=== PATIENT | male | born 1955 | race Caucasian/White ===

== ENCOUNTER 2018-02-22 06:54 | Inpatient (IN) | payer OTHER, BC ==
[2018-02-22 07:28] LABS: ADD MAN DIFF? NO
[2018-02-22 07:30] LABS: BASOPHILS % 0.4 % (0.0-2.0); HEMATOCRIT 43.8 % (42.0-52.0); HEMOGLOBIN 14.9 g/dl (14.0-18.0); LYMPHOCYTES # 1.6 10^3/ul (0.8-2.9); LYMPHOCYTES % 27.9 % (15.0-51.0); MEAN CORPUSCULAR HEMOGLOBIN 30.1 pg (29.0-33.0); MEAN CORPUSCULAR VOLUME 88.5 fl (82.0-101.0); MEAN PLATELET VOLUME 10.2 fl (7.4-10.4); MONOCYTE # 0.5 10^3/ul (0.3-0.9); MONOCYTES % 8.1 % (0.0-11.0); NEUTROPHIL # 3.6 10^3/ul (1.6-7.5); NEUTROPHILS % 63.2 % (39.0-77.0); PLATELET COUNT 217 10^3/UL (140-415); RED BLOOD COUNT 4.95 10^6/ul (4.70-6.10); RED CELL DISTRIBUTION WIDTH 13.1 % (11.5-14.5)
[2018-02-22 07:30] LABS: WHITE BLOOD COUNT 5.7 10^3/ul (4.8-10.8)
[2018-02-22] MEDS: SOD CHLORIDE 0.9% 1,000 ML IV ×2 (07:34→15:30)
[2018-02-22] MEDS: ASPIRIN 325 MG TAB PO (07:34)
[2018-02-22] MEDS: ONDANSETRON 4 MG INJ IV (07:34)
[2018-02-22] MEDS: morphine 4 MG/ML VIAL IV (07:35)
[2018-02-22 07:50] LABS: INR 0.91; PROTIME 12.3 Sec (11.9-14.9)
[2018-02-22 07:51] LABS: PARTIAL THROMBOPLASTIN TIME 31.9 Sec (25.0-35.0)
[2018-02-22 07:54] LABS: ALANINE AMINOTRANSFERASE 60 IU/L (13-69); ALBUMIN 3.8 g/dl (3.3-4.9); ALBUMIN/GLOBULIN RATIO 1.18; ALKALINE PHOSPHATASE 112 IU/L (42-121); AMYLASE 103 U/L (11-123); ANION GAP 9 (8-16); ASPARTATE AMINO TRANSFERASE 41 IU/L (15-46); BILIRUBIN,INDIRECT 0.7 mg/dl (0-1.1); BILIRUBIN,TOTAL 0.7 mg/dl (0.2-1.3); BLOOD UREA NITROGEN 16 mg/dl (7-20); CALCIUM 8.8 mg/dl (8.4-10.2); CARBON DIOXIDE 31 mmol/L (21-31); CHLORIDE 106 mmol/L (97-110); CREATINE KINASE 99 IU/L (23-200); CREATININE 0.82 mg/dl (0.61-1.24); GLUCOSE 114 mg/dl (70-220); LIPASE 33 U/L (23-300); POTASSIUM 3.7 mmol/L (3.5-5.1); SODIUM 142 mmol/L (135-144)
[2018-02-22 08:04] LABS: CK INDEX 2.2
[2018-02-22 08:09] LABS: CK-MB 2.22 ng/ml (0.0-2.4)
[2018-02-22] MEDS: NITROGLYCERIN (SL) 0.4 MG TAB SL (08:28)
[2018-02-22] MEDS: HEPARIN 1000 UNITS/ML 10 ML INJ IV ×2 (08:53→18:27)
[2018-02-22] MEDS ORDERED: ACETAMINOPHEN 325 MG TAB PO ×3 (09:00→13:30)
[2018-02-22] MEDS ORDERED: HEPARIN 1000 UNITS/ML 10 ML INJ IV (09:00)
[2018-02-22] MEDS ORDERED: ONDANSETRON 4 MG INJ IV ×3 (09:00→13:30)
[2018-02-22] MEDS ORDERED: HEPARIN 25000 UNITS/250 ML 250 ML IV (09:00)
[2018-02-22] MEDS: IOHEXOL 300MG/ML 150 ML BTL (09:27)
[2018-02-22] MEDS: SOD CHLORIDE 0.9% 100 ML (09:27)
[2018-02-22] MEDS ORDERED: BISACODYL 10 MG SUPP PR (09:30)
[2018-02-22] MEDS ORDERED: morphine 2 MG INJ IV (09:30)
[2018-02-22] MEDS ORDERED: ACETAMINOPHEN 650 MG SUPP PR (09:30)
[2018-02-22] MEDS ORDERED: HYDROCODONE/APAP (5/325) TAB PO ×2 (09:30)
[2018-02-22] MEDS ORDERED: NITROGLYCERIN (SL) 0.4 MG TAB SL (09:30)
[2018-02-22] MEDS ORDERED: DOCUSATE SODIUM 100 MG CAP PO (09:30)
[2018-02-22] MEDS ORDERED: NACL 0.9% 3 ML SYG IV (09:30)
[2018-02-22] MEDS ORDERED: MAGNESIUM HYDROXIDE 30ML CUP PO (09:30)
[2018-02-22 10:58] LABS: ADD MAN DIFF? NO
[2018-02-22 11:00] LABS: WHITE BLOOD COUNT 6.4 10^3/ul (4.8-10.8)
[2018-02-22 11:00] LABS: BASOPHILS % 0.5 % (0.0-2.0); HEMATOCRIT 42.4 % (42.0-52.0); HEMOGLOBIN 14.5 g/dl (14.0-18.0); LYMPHOCYTES # 1.2 10^3/ul (0.8-2.9); LYMPHOCYTES % 19.5 % (15.0-51.0); MEAN CORPUSCULAR HGB CONC 34.2 g/dl (32.0-37.0); MEAN CORPUSCULAR VOLUME 87.8 fl (82.0-101.0); MEAN PLATELET VOLUME 9.7 fl (7.4-10.4); MONOCYTE # 0.4 10^3/ul (0.3-0.9); MONOCYTES % 6.6 % (0.0-11.0); NEUTROPHIL # 4.7 10^3/ul (1.6-7.5); NEUTROPHILS % 72.9 % (39.0-77.0); PLATELET COUNT 206 10^3/UL (140-415); RED BLOOD COUNT 4.83 10^6/ul (4.70-6.10); RED CELL DISTRIBUTION WIDTH 12.8 % (11.5-14.5)
[2018-02-22 11:27] LABS: CREATINE KINASE 127 IU/L (23-200); INR 1.05; PROTIME 13.8 Sec (11.9-14.9); PT RATIO 1.1
[2018-02-22 11:39] LABS: CK INDEX 5.9
[2018-02-22] MEDS ORDERED: HEPARIN 1000 UNITS/ML 10 ML INJ (11:40)
[2018-02-22] MEDS ORDERED: FENTAnyl 50 MCG/ML VIAL (11:40)
[2018-02-22] MEDS ORDERED: IODIXANOL LOCM 100 ML BTL (11:40)
[2018-02-22] MEDS ORDERED: LIDOCAINE 1% (MDV) 20 ML INJ (11:40)
[2018-02-22] MEDS ORDERED: NITROGLYCERIN (IC) 100 MCG/ML INJ (11:41)
[2018-02-22] MEDS ORDERED: VERAPAMIL 5 MG INJ (11:41)
[2018-02-22] MEDS ORDERED: MIDAZOLAM 1 MG/ML 2 ML INJ (11:41)
[2018-02-22 11:45] LABS: CK-MB 7.49 ng/ml (0.0-2.4)
[2018-02-22 12:17] LABS: PARTIAL THROMBOPLASTIN TIME 53.4 Sec (25.0-35.0)
[2018-02-22] MEDS ORDERED: niCARdipine 25 MG INJ (12:30)
[2018-02-22] MEDS ORDERED: BIVALIRUDIN 250MG /NS 50 ML 50 ML IVPB (12:34)
[2018-02-22] MEDS ORDERED: TICAGRELOR 90 MG TABLET (12:44)
[2018-02-22] MEDS ORDERED: ASPIRIN 325 MG TAB (12:45)
[2018-02-22] MEDS ORDERED: ZOLPIDEM 5 MG TAB PO (13:30)
[2018-02-22] MEDS ORDERED: AL HYDROX/MG HYDROX/SIMETH 30 ML CUP PO (13:30)
[2018-02-22] MEDS ORDERED: OXYCODONE/ACETAMINOPHEN (5/325) TAB PO (13:30)
[2018-02-22 19:56] LABS: CREATINE KINASE 515 IU/L (23-200)
[2018-02-22 20:09] LABS: CK INDEX 9.5
[2018-02-22] MEDS: TICAGRELOR 90 MG TABLET PO (21:20)
[2018-02-22] MEDS ORDERED: morphine LIQ (10 MG/5 ML) CUP PO (22:30)
[2018-02-23 05:52] LABS: ADD MAN DIFF? NO
[2018-02-23 05:58] LABS: WHITE BLOOD COUNT 7.8 10^3/ul (4.8-10.8)
[2018-02-23 05:58] LABS: BASOPHILS % 0.3 % (0.0-2.0); HEMATOCRIT 39.6 % (42.0-52.0); HEMOGLOBIN 13.4 g/dl (14.0-18.0); LYMPHOCYTES # 1.3 10^3/ul (0.8-2.9); LYMPHOCYTES % 17.2 % (15.0-51.0); MEAN CORPUSCULAR HEMOGLOBIN 29.7 pg (29.0-33.0); MEAN CORPUSCULAR HGB CONC 33.8 g/dl (32.0-37.0); MEAN CORPUSCULAR VOLUME 87.8 fl (82.0-101.0); MEAN PLATELET VOLUME 10.5 fl (7.4-10.4); MONOCYTE # 0.7 10^3/ul (0.3-0.9); MONOCYTES % 8.8 % (0.0-11.0); NEUTROPHIL # 5.7 10^3/ul (1.6-7.5); NEUTROPHILS % 73.3 % (39.0-77.0); PLATELET COUNT 195 10^3/UL (140-415); RED BLOOD COUNT 4.51 10^6/ul (4.70-6.10); RED CELL DISTRIBUTION WIDTH 12.9 % (11.5-14.5)
[2018-02-23] MEDS: PANTOPRAZOLE 40 MG INJ IV (06:13)
[2018-02-23 06:25] LABS: CREATINE KINASE 297 IU/L (23-200)
[2018-02-23 06:34] LABS: CK INDEX 7.3
[2018-02-23 06:42] LABS: FREE THYROXINE INDEX (Calc) 2.35 ug/ml (0.65-3.89); T4 (THYROXINE) 6.9 ug/dl (5.5-11.0)
[2018-02-23 06:43] LABS: ALANINE AMINOTRANSFERASE 63 IU/L (13-69); ALBUMIN 3.1 g/dl (3.3-4.9); ALBUMIN/GLOBULIN RATIO 1.06; ALKALINE PHOSPHATASE 93 IU/L (42-121); ANION GAP 9 (8-16); ASPARTATE AMINO TRANSFERASE 73 IU/L (15-46); BILIRUBIN,INDIRECT 0.9 mg/dl (0-1.1); BILIRUBIN,TOTAL 0.9 mg/dl (0.2-1.3); BLOOD UREA NITROGEN 10 mg/dl (7-20); CALCIUM 8.5 mg/dl (8.4-10.2); CARBON DIOXIDE 25 mmol/L (21-31); CHLORIDE 108 mmol/L (97-110); CHOL/HDL RATIO 3.8 RATIO; CHOLESTEROL 192 mg/dl (100-200); CREATININE 0.61 mg/dl (0.61-1.24); GLUCOSE 90 mg/dl (70-220); HDL CHOLESTEROL 50 mg/dl (30-78); LDL CHOLESTEROL,CALCULATED 114 mg/dl; MAGNESIUM 1.8 mg/dl (1.7-2.5); POTASSIUM 3.9 mmol/L (3.5-5.1); SODIUM 138 mmol/L (135-144); TRIGLYCERIDES 139 mg/dl (0-149)
[2018-02-23 07:32] LABS: HEMOGLOBIN A1C 5.3 % (0-5.9)
[2018-02-23] MEDS: ASPIRIN (EC) 81 MG TAB PO (08:25)
[2018-02-23] MEDS: TICAGRELOR 90 MG TABLET PO ×2 (08:29→20:45)
[2018-02-23] MEDS ORDERED: DIAZEPAM 5 MG TAB PO (11:30)
[2018-02-23] MEDS: DIAZEPAM 5 MG TAB PO (11:30)
[2018-02-23] MEDS: DIPHENHYDRAMINE 50 MG CAP PO (21:00)
[2018-02-24 05:50] LABS: ADD MAN DIFF? NO
[2018-02-24 05:59] LABS: WHITE BLOOD COUNT 8.1 10^3/ul (4.8-10.8)
[2018-02-24 05:59] LABS: BASOPHILS % 0.2 % (0.0-2.0); HEMATOCRIT 41.2 % (42.0-52.0); HEMOGLOBIN 14.2 g/dl (14.0-18.0); LYMPHOCYTES # 1.2 10^3/ul (0.8-2.9); LYMPHOCYTES % 15.2 % (15.0-51.0); MEAN CORPUSCULAR HEMOGLOBIN 30.1 pg (29.0-33.0); MEAN CORPUSCULAR HGB CONC 34.5 g/dl (32.0-37.0); MEAN CORPUSCULAR VOLUME 87.5 fl (82.0-101.0); MEAN PLATELET VOLUME 10.6 fl (7.4-10.4); MONOCYTE # 0.7 10^3/ul (0.3-0.9); MONOCYTES % 8.6 % (0.0-11.0); NEUTROPHIL # 6.1 10^3/ul (1.6-7.5); NEUTROPHILS % 75.6 % (39.0-77.0); PLATELET COUNT 194 10^3/UL (140-415); RED BLOOD COUNT 4.71 10^6/ul (4.70-6.10); RED CELL DISTRIBUTION WIDTH 13.1 % (11.5-14.5)
[2018-02-24] MEDS: PANTOPRAZOLE 40 MG INJ IV (06:05)
[2018-02-24 06:20] LABS: INR 1.01; PROTIME 13.4 Sec (11.9-14.9)
[2018-02-24 06:21] LABS: PARTIAL THROMBOPLASTIN TIME 35.5 Sec (25.0-35.0)
[2018-02-24 06:29] LABS: ANION GAP 12 (8-16); BLOOD UREA NITROGEN 11 mg/dl (7-20); CALCIUM 8.8 mg/dl (8.4-10.2); CARBON DIOXIDE 23 mmol/L (21-31); CHLORIDE 108 mmol/L (97-110); CREATININE 0.65 mg/dl (0.61-1.24); GLUCOSE 104 mg/dl (70-220); POTASSIUM 3.9 mmol/L (3.5-5.1); SODIUM 139 mmol/L (135-144)
[2018-02-24] MEDS ORDERED: HEPARIN 1000 UNITS/ML 10 ML INJ (08:06)
[2018-02-24] MEDS ORDERED: VERAPAMIL 5 MG INJ (08:06)
[2018-02-24] MEDS ORDERED: FENTAnyl 50 MCG/ML VIAL (08:06)
[2018-02-24] MEDS ORDERED: MIDAZOLAM 1 MG/ML 2 ML INJ (08:06)
[2018-02-24] MEDS ORDERED: NITROGLYCERIN (IC) 100 MCG/ML INJ (08:07)
[2018-02-24] MEDS: ASPIRIN (EC) 81 MG TAB PO (08:23)
[2018-02-24] MEDS: TICAGRELOR 90 MG TABLET PO ×2 (08:26→20:44)
[2018-02-24] MEDS ORDERED: ASPIRIN 81 MG TAB PO (09:00)
[2018-02-24] MEDS ORDERED: BIVALIRUDIN 250MG /NS 50 ML 50 ML IVPB (09:34)
[2018-02-24] MEDS ORDERED: ZOLPIDEM 5 MG TAB PO (10:30)
[2018-02-24] MEDS ORDERED: ONDANSETRON 4 MG INJ IV (10:30)
[2018-02-24] MEDS ORDERED: OXYCODONE/ACETAMINOPHEN (5/325) TAB PO (10:30)
[2018-02-24] MEDS ORDERED: AL HYDROX/MG HYDROX/SIMETH 30 ML CUP PO (10:30)
[2018-02-24] MEDS ORDERED: ACETAMINOPHEN 325 MG TAB PO (10:30)
[2018-02-24] MEDS: SOD CHLORIDE 0.9% 1,000 ML IV (10:38)
[2018-02-24] MEDS ORDERED: TICAGRELOR 90 MG TABLET PO (21:00)
[2018-02-25 05:38] LABS: ADD MAN DIFF? NO
[2018-02-25] MEDS: PANTOPRAZOLE 40 MG INJ IV (05:40)
[2018-02-25 06:03] LABS: ANION GAP 12 (8-16); BLOOD UREA NITROGEN 10 mg/dl (7-20); CARBON DIOXIDE 23 mmol/L (21-31); CHLORIDE 108 mmol/L (97-110); CREATININE 0.65 mg/dl (0.61-1.24); GLUCOSE 101 mg/dl (70-220); POTASSIUM 4.2 mmol/L (3.5-5.1); SODIUM 139 mmol/L (135-144)
[2018-02-25 06:10] LABS: WHITE BLOOD COUNT 8.6 10^3/ul (4.8-10.8)
[2018-02-25 06:10] LABS: BASOPHILS % 0.2 % (0.0-2.0); HEMATOCRIT 44.1 % (42.0-52.0); HEMOGLOBIN 14.8 g/dl (14.0-18.0); LYMPHOCYTES # 1.2 10^3/ul (0.8-2.9); LYMPHOCYTES % 13.4 % (15.0-51.0); MEAN CORPUSCULAR HEMOGLOBIN 29.4 pg (29.0-33.0); MEAN CORPUSCULAR HGB CONC 33.6 g/dl (32.0-37.0); MEAN CORPUSCULAR VOLUME 87.7 fl (82.0-101.0); MEAN PLATELET VOLUME 10.4 fl (7.4-10.4); MONOCYTE # 0.7 10^3/ul (0.3-0.9); MONOCYTES % 7.7 % (0.0-11.0); NEUTROPHIL # 6.7 10^3/ul (1.6-7.5); NEUTROPHILS % 78.4 % (39.0-77.0); PLATELET COUNT 230 10^3/UL (140-415); RED BLOOD COUNT 5.03 10^6/ul (4.70-6.10); RED CELL DISTRIBUTION WIDTH 12.9 % (11.5-14.5)
[2018-02-25] MEDS ORDERED: ASPIRIN (EC) 81 MG TAB PO (09:00)
[2018-02-25] MEDS: ASPIRIN (EC) 81 MG TAB PO (09:10)
[2018-02-25] MEDS: TICAGRELOR 90 MG TABLET PO (09:11)
== END 2018-02-25 17:10 | disposition home or self-care (01) | DRG 247 ==
LOC: E/R 06:54 → CCL 09:49 → SDS 09:49 → CCL 10:00 → REC 10:00 → ICU 18:10
PROC: 027034Z Dilation of Coronary Artery, One Artery with Drug-eluting Intraluminal Device, Percutaneous Approach (ICD-10-PCS; principal; 2018-02-22 10:30)
PROC: 4A023N7 Measurement of Cardiac Sampling and Pressure, Left Heart, Percutaneous Approach (ICD-10-PCS; 2018-02-22 10:30)
PROC: B211YZZ Fluoroscopy of Multiple Coronary Arteries using Other Contrast (ICD-10-PCS; 2018-02-22 10:30)
PROC: 027135Z Dilation of Coronary Artery, Two Arteries with Two Drug-eluting Intraluminal Devices, Percutaneous Approach (ICD-10-PCS; 2018-02-22 11:30)
PROC: 4A023N7 Measurement of Cardiac Sampling and Pressure, Left Heart, Percutaneous Approach (ICD-10-PCS; 2018-02-22 11:30)
PROC: B211YZZ Fluoroscopy of Multiple Coronary Arteries using Other Contrast (ICD-10-PCS; 2018-02-22 11:30)
DX: I21.4 Non-ST elevation (NSTEMI) myocardial infarction (principal); I42.9 Cardiomyopathy, unspecified; R00.1 Bradycardia, unspecified; R03.0 Elevated blood-pressure reading, without diagnosis of hypertension; I25.10 Atherosclerotic heart disease of native coronary artery without angina pectoris; E78.5 Hyperlipidemia, unspecified; Z72.0 Tobacco use
CPT/HCPCS: 36415; 71045; 74177; 80048; 80053; 80061; 82150; 82550; 82553; 83036; 83690; 83735; 84100; 84436; 84443; 84479; 84484; 85025; 85610; 85730; 87081; 93005; 93306; 93458; 96374; 96375; 99291-25

== ENCOUNTER 2018-03-14 22:23 | Emergency (ER) | payer OTHER ==
[2018-03-15 00:20] LABS: ADD MAN DIFF? NO
[2018-03-15 00:24] LABS: BASOPHILS % 0.7 % (0.0-2.0); HEMATOCRIT 37.2 % (42.0-52.0); HEMOGLOBIN 12.5 g/dl (14.0-18.0); LYMPHOCYTES # 1.7 10^3/ul (0.8-2.9); LYMPHOCYTES % 31.1 % (15.0-51.0); MEAN CORPUSCULAR HEMOGLOBIN 29.4 pg (29.0-33.0); MEAN CORPUSCULAR HGB CONC 33.6 g/dl (32.0-37.0); MEAN CORPUSCULAR VOLUME 87.5 fl (82.0-101.0); MEAN PLATELET VOLUME 9.8 fl (7.4-10.4); MONOCYTE # 0.7 10^3/ul (0.3-0.9); MONOCYTES % 12.3 % (0.0-11.0); NEUTROPHIL # 3.1 10^3/ul (1.6-7.5); NEUTROPHILS % 55.7 % (39.0-77.0); PLATELET COUNT 223 10^3/UL (140-415); RED BLOOD COUNT 4.25 10^6/ul (4.70-6.10); RED CELL DISTRIBUTION WIDTH 12.6 % (11.5-14.5)
[2018-03-15 00:24] LABS: WHITE BLOOD COUNT 5.6 10^3/ul (4.8-10.8)
[2018-03-15 00:55] LABS: INR 0.97
[2018-03-15 00:56] LABS: PARTIAL THROMBOPLASTIN TIME 35.7 Sec (25.0-35.0)
[2018-03-15 01:10] LABS: ALANINE AMINOTRANSFERASE 50 IU/L (13-69); ALBUMIN 3.9 g/dl (3.3-4.9); ALKALINE PHOSPHATASE 106 IU/L (42-121); ANION GAP 12 (8-16); ASPARTATE AMINO TRANSFERASE 31 IU/L (15-46); BILIRUBIN,INDIRECT 0.4 mg/dl (0-1.1); BILIRUBIN,TOTAL 0.4 mg/dl (0.2-1.3); BLOOD UREA NITROGEN 17 mg/dl (7-20); CALCIUM 8.7 mg/dl (8.4-10.2); CARBON DIOXIDE 25 mmol/L (21-31); CHLORIDE 107 mmol/L (97-110); CREATININE 0.79 mg/dl (0.61-1.24); GLUCOSE 100 mg/dl (70-220); LIPASE 44 U/L (23-300); POTASSIUM 4.2 mmol/L (3.5-5.1); SODIUM 140 mmol/L (135-144); TOTAL PROTEIN 6.9 g/dl (6.1-8.1)
== END 2018-03-15 03:32 | disposition home or self-care (01) ==
LOC: E/R 22:23
DX: M79.81 Nontraumatic hematoma of soft tissue (principal); F17.210 Nicotine dependence, cigarettes, uncomplicated; Z79.82 Long term (current) use of aspirin; Z79.01 Long term (current) use of anticoagulants
CPT/HCPCS: 36415; 80053; 83690; 85025; 85610; 85730; 99283